=== PATIENT | female | born 1960 | race Caucasian/White ===

== ENCOUNTER 2023-07-20 11:01 | Outpatient (CLI) | payer OTHER, SELFPAY | END 2023-07-20 11:02 | disposition home or self-care (01) | PROVIDERS: PCP Family Medicine; Visit Provider Family Medicine | DX: R10.9 Unspecified abdominal pain (principal); Z13.29 Encounter for screening for other suspected endocrine disorder; I10 Essential (primary) hypertension | CPT/HCPCS: 80053; 84443 ==

== ENCOUNTER 2023-11-17 14:13 | Outpatient (CLI) | payer OTHER, SELFPAY | END 2023-11-17 14:14 | disposition home or self-care (01) | PROVIDERS: PCP Family Medicine; Visit Provider Family Medicine | DX: I10 Essential (primary) hypertension (principal); R10.13 Epigastric pain; Z13.220 Encounter for screening for lipoid disorders | CPT/HCPCS: 80053; 83690 ==

== ENCOUNTER 2023-11-18 13:23 | Outpatient (CLI) | payer OTHER, SELFPAY | END 2023-11-18 13:24 | disposition home or self-care (01) | LOC: NFLDREF 11-19 06:26 | PROVIDERS: PCP Family Medicine; Referring Provider Family Medicine; Visit Provider Family Medicine | DX: R10.13 Epigastric pain (principal) | CPT/HCPCS: 87338 ==

== ENCOUNTER 2023-12-03 10:34 | Outpatient (CLI) | payer OTHER, SELFPAY ==
--- NOTE | 2023-12-03 11:27 | W.ANESCHARGE ---
Anesthesia Charges Start Date/Time Anesthesia Start Date: 12/03/23 Anesthesia Start Time: 11:28 Stop Date/Time Anesthesia Stop Date: 12/03/23 Anesthesia Stop Time: 12:00
--- NOTE | 2023-12-03 11:59 | W.ANESCHARGE ---
Anesthesia Charges Start Date/Time Anesthesia Start Date: 12/03/23 Anesthesia Start Time: 11:28 Stop Date/Time Anesthesia Stop Date: 12/03/23 Anesthesia Stop Time: 12:00
== END 2023-12-03 10:35 | disposition home or self-care (01) ==
LOC: OP CLINIC 10:35
PROVIDERS: PCP Family Medicine; Visit Provider Surgery
DX: Z12.11 Encounter for screening for malignant neoplasm of colon (principal); K63.5 Polyp of colon; Z80.0 Family history of malignant neoplasm of digestive organs
CPT/HCPCS: 00811; 45385; 88305; J2704

== ENCOUNTER 2023-12-16 11:03 | Emergency (ER) | payer OTHER, SELFPAY ==
[2023-12-16 11:29] VITALS: BP 180/91; PULSE 105; RESP 16; TEMP 36.8; O2SAT 97; BMI 28.3
--- NOTE | 2023-12-16 12:28 | CT_ITS ---
Patient: DACIA BRUNNER Facility:?[facility] Patient ID:?[id number] Site Patient ID:?[id number]. Site :?[id number] Study:?CT-Abdomen/Pelvis W/ 76CC ISOVUE 370-12/16/2023 1:10:55 PM Ordering Physician:DEBORA Final Report: INDICATION: Epigastric pain TECHNIQUE: Axial images were obtained from the diaphragm to the pubic symphysis. Reformats were obtained in the coronal and sagittal plane. IV Contrast: 76 cc Isovue 370 Oral Contrast: None COMPARISON: Abdomen and pelvis CT 07/29/2021 FINDINGS: Lower chest: Unremarkable. Liver: Normal in contour with stable subcentimeter hypodense lesion within the right lobe of the liver. Gallbladder and bile ducts: Gallbladder is not seen suggesting prior cholecystectomy. Normal diameter common duct. Spleen: Multiple calcifications within the spleen consistent with old granulomatous disease. Cyst redemonstrated at the inferior aspect of the spleen. Pancreas: Unremarkable. No mass or inflammation. Adrenal glands: Unremarkable. No nodules. Kidneys: Symmetric renal enhancement with likely bilateral peripelvic cysts. Subcentimeter hypodense lesion lower pole left kidney which is too small for characterization although unchanged from the prior exam. Nonobstructing 1 millimeter stone upper pole left kidney. Vasculature: Unremarkable. GI tract: Stomach is decompressed. No dilated loops of large or small intestine. [id number] amount of stool within the colon. Pelvis: Status post left adnexal surgery. 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 IMPRESSION: 1. No dilated bowel or localized inflammation. 2. Nonobstructing nephrolithiasis. 3. Old granulomatous disease. Please note that all CT scans at this facility use dose modulation, iterative reconstruction, and/or weight-based dosing when appropriate to reduce radiation dose to as low as reasonably achievable. Dictated by Toribio Hernandez MD @ 12/16/2023 1:42:40 PM Signed by:Luther Hernandez MD @12/16/2023 1:42:40 PM (Electronic Signature)
--- NOTE | 2023-12-16 12:30 | ED_ITS ---
HPI - General Adult General Chief complaint: Ear/Nose/Throat Problem Stated complaint: abdominal pain/ hard to swallow Time Seen by Provider: 12/16/23 11:07 History of Present Illness HPI narrative: Patient is a 63 year white female who has had her gallbladder removed about a year ago, as had over the last few weeks some epigastric tightness, occasionally sticking of food as she swallows. She has had a known history of reflux as well she has worked with Dr. Xiong and had multiple lab tests done. She had a recent colonoscopy that she reports was negative. The patient was thought to need a EGD at some point. She does have occasional reflux, does not really have chest pain but does have some epigastric pain where she can massage her xiphoid area and actually belch. She has no blood in her stool no vomitus of blood , patient has had no weight loss. Related Data Home Medications Medication Instructions Recorded Confirmed esomeprazole magnesium 20 mg 20 mg PO DAILY 12/16/23 12/16/23 capsule,delayed release (Nexium) famotidine 20 mg tablet (Acid 20 mg PO QHS 12/16/23 12/16/23 Controller) Previous Rx's Medication Instructions Recorded hydrochlorothiazide 25 mg tablet 25 mg PO QDAY #90 tabs 07/20/23 lisinopril 20 mg tablet 20 mg PO QDAY #90 tabs 07/20/23 Allergies Allergy/AdvReac Type Severity Reaction Status Date / Time No Known Drug Allergies Allergy Verified 12/16/23 13:07 Review of Systems Status of ROS: Reports: 6 or more systems reviewed and unremarkable except as noted in History and below [facility] Medical History Bacterial vaginosis ?N76.0 - Acute vaginitis (ICD-10) ?B96.89 - Other specified bacterial agents as the cause of diseases classified elsewhere (ICD-10) Abnormal Pap smear of cervix ?R87.619 - Unspecified abnormal cytological findings in specimens from cervix uteri (ICD-10) Surgical History S/P cholecystectomy ?Z90.49 - Acquired absence of other specified parts of digestive tract (ICD- 10) Status post tubal ligation ?Z98.51 - Tubal ligation status (ICD-10) Status post tonsillectomy ?Z90.89 - Acquired absence of other organs (ICD-10) History of oophorectomy Family History Other Breast cancer Social History Smoking Status: Never smoker Do you use any of these nicotine containing products: None Second hand tobacco smoke exposure: No How often do you have a drink containing alcohol: never AUDIT-C Alcohol total score: 0 Non-prescribed substance use: denies use Little interest or pleasure in doing things: not at all Feeling down, depressed, or hopeless: not at all Exam Narrative: Exam Narrative: Objective: The patient does have hypertension her blood pressure is elevated today, 180/91, she is afebrile, O2 sat 97% on room air She is able to eat and drink adequately HEENT shows no scleral icterus no facial asymmetry neck is supple chest clear heart rhythm regular heart murmur no palpable chest wall pain abdomen benign soft nontender no rebound or peritonitis Extremities are no edema neurologic nonfocal Good peripheral perfusion the skin. Const: Vital Signs, click to edit/add: Vital Signs - 24 hr 12/16/23 11:29 12/16/23 14:05 Temperature 98.3 F Pulse Rate [Pulse Oximeter] 105 H 90 Respiratory Rate 16 18 Blood Pressure [Ri ght Upper Arm] 180/91 H 145/88 H Pulse Oximetry 97 95 Oxygen Delivery Me thod Room Air Room Air Course Vital Signs Vital signs: Initial Vital Signs Temperature 98.3 F 12/16/23 11:29 Temperature Source Temporal Artery Scan 12/16/23 11:29 Pulse Rate 105 H 12/16/23 11:29 Respiratory Rate 16 12/16/23 11:29 Blood Pressure 180/91 H 12/16/23 11:29 Blood Pressure Mean 120 H 12/16/23 11:29 Blood Pressure Position Supine 12/16/23 11:29 Pulse Oximetry 97 12/16/23 11:29 Oxygen Delivery Method Room Air 12/16/23 11:29 Vital Signs Temperature 98.3 F 12/16/23 11:29 Pulse Rate 105 H 12/16/23 11:29 Respiratory Rate 16 12/16/23 11:29 Blood Pressure 180/91 H 12/16/23 11:29 Pulse Oximetry 97 12/16/23 11:29 Oxygen Delivery Method Room Air 12/16/23 11:29 Temperature 98.3 F 12/16/23 11:29 Pulse Rate 90 12/16/23 14:05 Respiratory Rate 18 12/16/23 14:05 Blood Pressure 145/88 H 12/16/23 14:05 Pulse Oximetry 95 12/16/23 14:05 Oxygen Delivery Method Room Air 12/16/23 14:05 Medications Administered Medications: Discontinued Medications Generic Name Dose Route Start Last Admin Trade Name Fresubha PRN Reason Stop Dose Admin Sodium Chloride 500 mls @ 500 mls/hr 12/16/23 12:27 12/16/23 13:54 0.9 % Sodium Chloride 500 Ml IV 12/16/23 13:26 Infused .Q1H ONE Infusion Medical Decision Making MDM Narrative Medical decision making narrative: [age] year white female with persistent epigastric tightness discomfort. This has been going on for several months. She has had a negative colonoscopy. She is status post cholecystectomy. The patient does did report some sticking of food and has had a history of reflux. I think at this point this is likely related esophagitis or esophageal stricture, and the patient needs an EGD. This is scheduled for tomorrow. Will check labs. I think also CT scan of her abdomen and pelvis with IV contrast to be appropriate to rule out mass or other pathology. Will also check laboratory studies and repeat. And if these are reassuring I think continue with the EGD tomorrow as appropriate. The patient is already on Pepcid and Nexium. And will follow-up after EGD with primary care. The patient's CT scan of the abdomen pelvis show no dilated bowel or localized inflammation nonobstructing nephrolithiasis old granulomatous disease. The patient does have an EGD scheduled for tomorrow and will complete this, follow- up Dr. Xiong after study within the next few days. Lab Data Labs: Lab Results 12/16/23 Range/Units 12:45 WBC 5.98 (4.50-11.00) K/uL RBC 4.57 (4.00-5.20) m/uL Hgb 13.1 (12.0-16.0) gm/dL Hct 40.1 (33.0-51.0) % MCV 88 (80-100) fL MCH 29 (26-34) pg MCHC 33 (32-36) gm/dL RDW Coeff of Tammy 12.7 (11.5-15.5) % Plt Count 323 (140-440) K/uL Neut % (Auto) 67.0 (42.0-72.0) % Lymph % (Auto) 23.9 (20-44) % [place] % (Auto) 7.4 (0.0-11.0) % Eos % (Auto) 1.2 (0.0-7.0) % Baso % (Auto) 0.2 (0.0-3.0) % Neut # (Auto) 4.01 (1.7-7.0) K/uL Lymph # (Auto) 1.43 (0.90-2.90) K/uL [place] # (Auto) 0.40 (0.00-0.90) K/UL Eos # (Auto) 0.07 (0.00-0.50) K/uL Baso # (Auto) 0.01 (0.00-0.30) K/uL Abs Immat Gran (auto) 0.02 (0.00-0.30) K/uL Imm/Tot Granulo (auto) 0.3 % Sodium 139 (135-149) mmol/L Potassium 3.9 (3.6-5.1) mmol/L Chloride 104 (96-114) mmol/L Carbon Dioxide 28 (20-32) mmol/L Anion Gap 7 (7-15) mEq/L BUN 16 (7-30) mg/dL Creatinine 0.7 (0.5-1.5) mg/dL Estimated Creat Clear 44.95 Estimated GFR 97 ml/min Glucose 108 (60-115) mg/dL Calcium 9.8 (8.4-10.6) mg/dL Total Bilirubin 0.4 (0.1-1.5) mg/dL Direct Bilirubin 0.2 (0.0-0.5) mg/dL AST 56 H (12-35) U/L ALT 78 H (4-35) U/L Alkaline Phosphatase 103 (40-150) U/L C-Reactive Protein 0.6 (0.5-1.0) mg/dL Total Protein 8.3 (6.0-8.3) g/dL Albumin 4.8 (3.3-5.0) g/dL Amylase 105 H (18-89) U/L POC Troponin I 0.00 L (0.01-0.04) ng/ml Discharge Plan Discharge Clinical Impression: Dysphagia, Hypertension, Chronic epigastric pain Patient Disposition: Home w/ Parent or Adult Condition: Stable Additional Instructions: Your Upper Endoscopy is scheduled on 12/16 with an 11:45am arrival time. Please enter through the ER and take a left through the Surgery Center. If you have any questions or need to reschedule, please call [phone]. Continue home medications, especially her acid suppression medicine and reflux medicine, so your scheduled for endoscopy tomorrow upper to look at your stomach and esophagus. He will follow-up with Dr. Xiong after the study within the next couple of days postprocedure. Light diet recommended. Return to ED sooner problems or concerns. Activity Level: Light activity Discharge Diet: Full Liquid Prescriptions: No Action lisinopril 20 mg tablet 20 mg PO QDAY Qty: 90 3RF hydrochlorothiazide 25 mg tablet 25 mg PO QDAY Qty: 90 3RF esomeprazole magnesium [Nexium] 20 mg capsule,delayed release(DR/EC) 20 mg PO DAILY famotidine [Acid Controller] 20 mg tablet 20 mg PO QHS Follow Up/Referrals: Brandan Keller MD [Primary Care Provider] - Stand Alone Forms: Burstly Info Instructions
[2023-12-16] MEDS: 0.9 % SODIUM CHLORIDE 500 ML 500 ML IV (12:52)
[2023-12-16 13:01] LABS: Basophils Absolute Auto 0.01 K/uL (0.00-0.30); Basophils Percent Auto 0.2 % (0.0-3.0); Eosinophils Absolute Auto 0.07 K/uL (0.00-0.50); Eosinophils Percent Auto 1.2 % (0.0-7.0); Hematocrit 40.1 % (33.0-51.0); Hemoglobin* 13.1 gm/dL (12.0-16.0); Immature Granulocytes Abs Auto 0.02 K/uL (0.00-0.30); Immature Granulocytes Pct Auto 0.3 %; Lymphocytes Absolute Auto 1.43 K/uL (0.90-2.90); Lymphocytes Percent Auto 23.9 % (20-44); Mean Corpuscular HGB Conc 33 gm/dL (32-36); Mean Corpuscular Hemoglobin 29 pg (26-34); Mean Corpuscular Volume 88 fL (80-100); Monocytes Percent Auto 7.4 % (0.0-11.0); Neutrophils Absolute Auto 4.01 K/uL (1.7-7.0); Platelet Count* 323 K/uL (140-440); RDW Coefficient of Variation % 12.7 % (11.5-15.5); Red Blood Count 4.57 m/uL (4.00-5.20); White Blood Count* 5.98 K/uL (4.50-11.00)
[2023-12-16 13:07] LABS: Slide Review Reflex No
[2023-12-16 13:22] LABS: Chloride* 104 mmol/L (96-114)
[2023-12-16 13:23] LABS: Albumin* 4.8 g/dL (3.3-5.0); Potassium* 3.9 mmol/L (3.6-5.1); Sodium* 139 mmol/L (135-149)
[2023-12-16 13:25] LABS: Amylase* 105 U/L (18-89)
[2023-12-16 13:26] LABS: Alkaline Phosphatase* 103 U/L (40-150); Anion Gap 7 mEq/L (7-15); Aspartate Amino Transferase* 56 U/L (12-35); Bilirubin Direct* 0.2 mg/dL (0.0-0.5); Bilirubin Total* 0.4 mg/dL (0.1-1.5); Blood Urea Nitrogen* 16 mg/dL (7-30); Carbon Dioxide* 28 mmol/L (20-32); Creatinine* 0.7 mg/dL (0.5-1.5); Est. Creatinine Clearance* 44.95; Estimated Glomerular Filt Rate 97 ml/min; Glucose* 108 mg/dL (60-115); Total Protein* 8.3 g/dL (6.0-8.3)
[2023-12-16 13:27] LABS: Alanine Aminotransferase* 78 U/L (4-35); Calcium* 9.8 mg/dL (8.4-10.6)
[2023-12-16 13:29] LABS: C Reactive Protein* 0.6 mg/dL (0.5-1.0)
[2023-12-16 14:05] VITALS: BP 145/88; PULSE 90; RESP 18; O2SAT 95
== END 2023-12-16 14:13 | disposition home or self-care (01) ==
PROVIDERS: Emergency Provider Family Medicine; PCP Family Medicine
DX: R10.13 Epigastric pain (principal); I10 Essential (primary) hypertension; R13.10 Dysphagia, unspecified
CPT/HCPCS: 36415; 74177; 80048; 80076; 82150; 84484; 85025; 86140; 93005; 99284; 99285; J7030; Q9967

== ENCOUNTER 2023-12-17 10:48 | Outpatient (CLI) | payer OTHER, SELFPAY ==
--- NOTE | 2023-12-17 11:42 | W.ANESCHARGE ---
Anesthesia Charges Start Date/Time Anesthesia Start Date: 12/17/23 Anesthesia Start Time: 11:35 Stop Date/Time Anesthesia Stop Date: 12/17/23 Anesthesia Stop Time: 11:51
--- NOTE | 2023-12-17 11:53 | W.ANESCHARGE ---
Anesthesia Charges Start Date/Time Anesthesia Start Date: 12/17/23 Anesthesia Start Time: 11:35 Stop Date/Time Anesthesia Stop Date: 12/17/23 Anesthesia Stop Time: 11:51
== END 2023-12-17 10:49 | disposition home or self-care (01) ==
LOC: OP CLINIC 10:48
PROVIDERS: PCP Family Medicine; Visit Provider Surgery
DX: R13.10 Dysphagia, unspecified (principal); K31.89 Other diseases of stomach and duodenum; R10.13 Epigastric pain
CPT/HCPCS: 00731; 43239; 88305; J2704

== ENCOUNTER 2024-05-17 15:14 | Outpatient (CLI) | payer OTHER, SELFPAY | END 2024-05-17 15:15 | disposition home or self-care (01) | LOC: NFLDREF 05-18 14:17 | PROVIDERS: PCP Family Medicine; Referring Provider Family Medicine; Visit Provider Family Medicine | DX: R39.9 Unspecified symptoms and signs involving the genitourinary system (principal); N39.0 Urinary tract infection, site not specified; B37.31 Acute candidiasis of vulva and vagina; N30.00 Acute cystitis without hematuria; R10.13 Epigastric pain | CPT/HCPCS: 87086 ==